=== PATIENT | female | born 1950 | race Caucasian/White ===

== ENCOUNTER 2018-11-05 07:43 | Outpatient (CLI) | payer OTHER | END 2018-11-05 07:56 | disposition home or self-care (01) | LOC: NUCLEAR 07:43 | DX: E21.3 Hyperparathyroidism, unspecified (principal) | CPT/HCPCS: 78070; A9500 ==

== ENCOUNTER 2018-11-29 06:33 | Inpatient (IN) | payer OTHER ==
[~2018-11-29] VITALS: Ht 157.5 cm; Wt 68.0 kg
[2018-11-29] MEDS ORDERED: FOSAMAX70 MG PO (06:44)
[2018-11-29] MEDS ORDERED: VITAMIN D-32000 UNIT PO (06:45)
[2018-12-08] MEDS ORDERED: FLAGYL500MG PO (14:27)
[2018-12-08] MEDS ORDERED: CIPRO500 MG PO (14:27)
== END 2018-12-08 16:16 | disposition home or self-care (01) | DRG 391 ==
LOC: ER 06:33 → MEDI 14:24
PROVIDERS: ADMIT Internal Medicine
PROC: 02HV33Z Insertion of Infusion Device into Superior Vena Cava, Percutaneous Approach (ICD-10-PCS; 2018-12-02)
PROC: BW21ZZZ Computerized Tomography (CT Scan) of Abdomen and Pelvis (ICD-10-PCS; principal; 2018-12-04)
DX: K57.20 Diverticulitis of large intestine with perforation and abscess without bleeding (principal); A41.1 Sepsis due to other specified staphylococcus; D72.828 Other elevated white blood cell count; D12.6 Benign neoplasm of colon, unspecified

== ENCOUNTER 2019-02-11 08:34 | Inpatient (IN) | payer OTHER ==
[~2019-02-11] VITALS: Ht 157.5 cm; Wt 69.4 kg
[~2019-02-11 08:34] MED LIST: CIPRO500 MG PO; FLAGYL500MG PO; FOSAMAX70 MG PO; VITAMIN D-32000 UNIT PO
[2019-02-27] MEDS ORDERED: CATAFLAN PO (08:15)
[2019-03-05] MEDS ORDERED: DICLOFENAC POTA50 MG PO (08:57)
== END 2019-03-07 10:47 | disposition home or self-care (01) | DRG 627 ==
LOC: O/R 03-05 04:45 → SURH 03-05 04:45 → SURG 03-05 07:15 → SURH 03-05 14:19 → O/R 03-05 14:28 → SURH 03-05 14:36
PROVIDERS: ADMIT Specialist
PROC: 0GBN0ZZ Excision of Right Inferior Parathyroid Gland, Open Approach (ICD-10-PCS; principal; 2019-03-05 07:00)
DX: D35.1 Benign neoplasm of parathyroid gland (principal); E83.51 Hypocalcemia

== ENCOUNTER 2019-03-11 06:17 | Outpatient (CLI) | payer OTHER ==
[~2019-03-11 06:17] MED LIST changes: +CATAFLAN PO; +DICLOFENAC POTA50 MG PO
== END 2019-03-11 06:20 | disposition home or self-care (01) ==
LOC: LAB 06:17
DX: D35.1 Benign neoplasm of parathyroid gland (principal); E83.51 Hypocalcemia

== ENCOUNTER 2019-06-07 06:20 | Day surgery (SDC) | payer OTHER | END 2019-06-07 12:00 | disposition home or self-care (01) | LOC: AMB-ENDOS 06:20 | DX: K62.89 Other specified diseases of anus and rectum (principal); K57.30 Diverticulosis of large intestine without perforation or abscess without bleeding; K64.1 Second degree hemorrhoids ==

== ENCOUNTER 2020-08-26 09:17 | Inpatient (IN) | payer OTHER ==
[~2020-08-26] VITALS: Ht 154.9 cm; Wt 71.7 kg
[2020-08-26] MEDS ORDERED: ATORVASTATIN CA10 MG (09:28)
[2020-08-26] MEDS ORDERED: COZAAR50 MG (09:29)
[2020-08-26] MEDS ORDERED: LEVSIN/SL0.125 MG PO (15:52)
[2020-08-26] MEDS ORDERED: FLAGYL500MG PO (15:52)
[2020-08-26] MEDS ORDERED: INTESTINEX680 M1 PO (15:52)
[2020-08-26] MEDS ORDERED: CIPRO500 MG PO (15:52)
[2020-09-01] MEDS ORDERED: INTESTINEX680 M1 PO ×2 (12:40→12:56)
[2020-09-01] MEDS ORDERED: CIPRO500 MG PO ×2 (12:40→12:56)
[2020-09-01] MEDS ORDERED: ATORVASTATIN CA10 MG PO (12:40)
[2020-09-01] MEDS ORDERED: COZAAR50 MG PO (12:40)
[2020-09-01] MEDS ORDERED: LEVSIN/SL0.125 MG PO (12:40)
[2020-09-01] MEDS ORDERED: PANTOPRAZOLE SO40 MG PO ×2 (12:40→12:56)
[2020-09-01] MEDS ORDERED: FLAGYL500MG PO ×2 (12:40→12:56)
[2020-09-01] MEDS ORDERED: LIPITOR20 MG PO ×2 (12:43→12:56)
[2020-09-01] MEDS ORDERED: HYZAAR 100-12.1 EACH PO (12:56)
== END 2020-09-01 13:14 | disposition home or self-care (01) | DRG 392 ==
LOC: ER 09:17 → MEDI 19:26
PROVIDERS: ADMIT Internal Medicine Geriatric Medicine; ATTEND Internal Medicine Geriatric Medicine
PROC: BW2110Z Computerized Tomography (CT Scan) of Abdomen and Pelvis using Low Osmolar Contrast, Unenhanced and Enhanced (ICD-10-PCS; principal; 2020-08-26)
DX: K57.20 Diverticulitis of large intestine with perforation and abscess without bleeding (principal); K57.30 Diverticulosis of large intestine without perforation or abscess without bleeding; I10 Essential (primary) hypertension; E83.51 Hypocalcemia; Z20.822 Contact with and (suspected) exposure to COVID-19